=== PATIENT | female | born 1975 | race Two or more races ===

== ENCOUNTER 2018-04-29 10:17 | Emergency (ER) | payer OTHER ==
[~2018-04-29] VITALS: Ht 152.4 cm; Wt 40.8 kg
[2018-04-29] MEDS ORDERED: PYRIDIUM200 MG PO (13:21)
[2018-04-29] MEDS ORDERED: CIPRO500 MG PO (13:21)
== END 2018-04-29 15:44 | disposition home or self-care (01) ==
LOC: ER 10:17
DX: N39.0 Urinary tract infection, site not specified (principal)

== ENCOUNTER 2018-12-31 20:12 | Emergency (ER) | payer OTHER ==
[~2018-12-31] VITALS: Ht 152.4 cm; Wt 40.8 kg
[~2018-12-31 20:12] MED LIST: CIPRO500 MG PO; PYRIDIUM200 MG PO
== END 2018-12-31 22:08 | disposition home or self-care (01) ==
LOC: ER 20:12
DX: N83.292 Other ovarian cyst, left side (principal); N83.291 Other ovarian cyst, right side

== ENCOUNTER 2019-08-03 22:03 | Emergency (ER) | payer OTHER ==
[~2019-08-03] VITALS: Ht 152.4 cm; Wt 42.6 kg
[2019-08-04] MEDS ORDERED: BACTRIM DS TAB1 EACH PO ×2 (03:24→03:27)
[2019-08-04] MEDS ORDERED: PYRIDIUM DS200 MG PO ×2 (03:25→03:27)
== END 2019-08-04 03:35 | disposition home or self-care (01) ==
LOC: ER 22:03
DX: G43.909 Migraine, unspecified, not intractable, without status migrainosus (principal); N39.0 Urinary tract infection, site not specified

== ENCOUNTER 2019-11-08 12:02 | Emergency (ER) | payer OTHER ==
[~2019-11-08] VITALS: Ht 152.4 cm; Wt 40.8 kg
[~2019-11-08 12:02] MED LIST changes: +BACTRIM DS TAB1 EACH PO; +PYRIDIUM DS200 MG PO
[2019-11-08] MEDS ORDERED: PEPCID20 MG PO (14:44)
[2019-11-08] MEDS ORDERED: INTESTINEX680 M1 PO (14:44)
[2019-11-08] MEDS ORDERED: TUSSI PRES-B L480 ML PO (14:44)
[2019-11-08] MEDS ORDERED: ZITHROMAX500 MG PO (14:44)
== END 2019-11-08 14:48 | disposition home or self-care (01) ==
LOC: ER 12:02
DX: B34.9 Viral infection, unspecified (principal)

== ENCOUNTER 2020-05-17 19:47 | Emergency (ER) | payer OTHER ==
[~2020-05-17] VITALS: Ht 152.4 cm; Wt 42.2 kg
[~2020-05-17 19:47] MED LIST changes: +INTESTINEX680 M1 PO; +PEPCID20 MG PO; +TUSSI PRES-B L480 ML PO; +ZITHROMAX500 MG PO
== END 2020-05-17 21:59 | disposition home or self-care (01) ==
LOC: ER 19:47
DX: R30.0 Dysuria (principal); R31.9 Hematuria, unspecified

== ENCOUNTER 2021-03-19 18:00 | Emergency (ER) | payer OTHER ==
[~2021-03-19] VITALS: Ht 152.4 cm; Wt 40.8 kg
[2021-03-19] MEDS ORDERED: SIMVASTATIN5 MG (18:15)
== END 2021-03-20 00:04 | disposition home or self-care (01) ==
LOC: ER 18:00
DX: N20.0 Calculus of kidney (principal); N39.0 Urinary tract infection, site not specified; K59.09 Other constipation; Z11.52 Encounter for screening for COVID-19

== ENCOUNTER 2021-06-29 11:27 | Emergency (ER) | payer OTHER ==
[~2021-06-29] VITALS: Ht 152.4 cm; Wt 47.2 kg
[~2021-06-29 11:27] MED LIST changes: +SIMVASTATIN5 MG
[2021-06-29] MEDS ORDERED: INTESTINEX680 M1 PO (15:33)
[2021-06-29] MEDS ORDERED: CIPRO500 MG PO (15:33)
[2021-06-29] MEDS ORDERED: URETRON D-S TAB1 TAB PO (15:33)
== END 2021-06-29 15:58 | disposition home or self-care (01) ==
LOC: ER 11:27
DX: R30.0 Dysuria (principal); N39.0 Urinary tract infection, site not specified

== ENCOUNTER 2022-03-07 02:31 | Emergency (ER) | payer OTHER ==
[~2022-03-07] VITALS: Ht 152.4 cm; Wt 40.8 kg
[~2022-03-07 02:31] MED LIST changes: +URETRON D-S TAB1 TAB PO
[2022-03-07] MEDS ORDERED: DOLOGESIC 500-1 EACH PO ×3 (05:06→05:07)
[2022-03-07] MEDS ORDERED: ORASEP SPRAY30 ML MM (05:06)
[2022-03-07] MEDS ORDERED: PHENAGIL CH TA1 EACH PO ×3 (05:06→05:07)
[2022-03-07] MEDS ORDERED: ZYNCOF 20-400120 ML PO (05:10)
== END 2022-03-07 05:24 ==
LOC: ER 02:31
DX: U07.1 COVID-19 (principal)

== ENCOUNTER 2022-03-09 23:01 | Emergency (ER) | payer OTHER ==
[~2022-03-09] VITALS: Ht 152.4 cm; Wt 40.8 kg
[~2022-03-09 23:01] MED LIST changes: +DOLOGESIC 500-1 EACH PO; +ORASEP SPRAY30 ML MM; +PHENAGIL CH TA1 EACH PO; +ZYNCOF 20-400120 ML PO
[2022-03-10] MEDS ORDERED: PEPCID AC20 MG PO (02:16)
[2022-03-10] MEDS ORDERED: ZOFRAN8 MG PO (02:16)
== END 2022-03-10 16:36 | disposition home or self-care (01) ==
LOC: ER 23:01
DX: U07.1 COVID-19 (principal); R11.2 Nausea with vomiting, unspecified

== ENCOUNTER 2022-08-20 07:02 | Emergency (ER) | payer OTHER ==
[~2022-08-20] VITALS: Ht 152.4 cm; Wt 41.3 kg
[~2022-08-20 07:02] MED LIST changes: +PEPCID AC20 MG PO; +ZOFRAN8 MG PO
[2022-08-20] MEDS ORDERED: ROSUVASTATIN CA10 MG PO (07:20)
== END 2022-08-20 13:13 | disposition home or self-care (01) ==
LOC: ER 07:02
DX: R10.2 Pelvic and perineal pain (principal)

== ENCOUNTER 2023-04-03 08:38 | Emergency (ER) | payer OTHER ==
[~2023-04-03] VITALS: Ht 152.4 cm; Wt 40.8 kg
[~2023-04-03 08:38] MED LIST changes: +ROSUVASTATIN CA10 MG PO
[2023-04-03] MEDS ORDERED: PEPCID AC20 MG PO (13:54)
[2023-04-03] MEDS ORDERED: ACID REDUCER20 M1 PO (13:54)
== END 2023-04-03 13:59 | disposition home or self-care (01) ==
LOC: ER 08:38
DX: K27.9 Peptic ulcer, site unspecified, unspecified as acute or chronic, without hemorrhage or perforation (principal); R11.0 Nausea; R11.10 Vomiting, unspecified; Z20.822 Contact with and (suspected) exposure to COVID-19; I10 Essential (primary) hypertension; Z88.1 Allergy status to other antibiotic agents

== ENCOUNTER 2023-05-09 13:36 | Emergency (ER) | payer OTHER ==
[~2023-05-09] VITALS: Ht 152.4 cm; Wt 44.5 kg
[~2023-05-09 13:36] MED LIST changes: +ACID REDUCER20 M1 PO
== END 2023-05-09 18:36 | disposition home or self-care (01) ==
LOC: ER 13:36
DX: B34.9 Viral infection, unspecified (principal); K27.9 Peptic ulcer, site unspecified, unspecified as acute or chronic, without hemorrhage or perforation; Z20.822 Contact with and (suspected) exposure to COVID-19

== ENCOUNTER 2024-07-11 15:20 | Emergency (ER) | payer OTHER ==
[~2024-07-11] VITALS: Ht 152.4 cm; Wt 43.5 kg
[~2024-07-11 15:20] MED LIST changes: +CRESTOR20 MG PO; +FAMOTIDINE40 MG PO; +FENOFIBRATE160 MG PO; +LOVAZA1 GM PO
[2024-07-11] MEDS ORDERED: DEXAMETHASONE SODIUM PHOSPHATE 4 MG/ML VIAL IM STA (17:15)
[2024-07-11] MEDS ORDERED: ORPHENADRINE CITRATE 30 MG/ML AMPUL IM STA (17:15)
[2024-07-11] MEDS ORDERED: DEXAMETHASONE SODIUM PHOSPHATE 4 MG/ML VIAL ONE (17:58)
[2024-07-11] MEDS ORDERED: ORPHENADRINE CITRATE 30 MG/ML AMPUL ONE (17:58)
[2024-07-11 18:02] LABS: HEMATOCRIT 37.1 % (36.0-45.00); HEMOGLOBIN 12.5 g/dL (12.0-15.00); MEAN CELL VOLUME 81.7 fL (80.00-100.00); MEAN CORPUSCULAR HEMOGLOBIN 27.6 pg (27.00-32.0); MEAN CORPUSCULAR HGB CONC 33.8 g/dl (32.0-36.0); PLATELET COUNT 230 K/uL (150-450); RED BLOOD COUNT 4.53 M/uL (4.00-6.00); RED CELL DISTRIBUTION WIDTH 13.7 % (11.5-14.5)
[2024-07-11 19:10] LABS: PH,URINE 5.5 (5.0-8.0); URINE APPEARANCE Cloudy; URINE BILIRRUBIN Negative (NEGATIVE); URINE BLOOD Moderate; URINE COLOR Yellow; URINE GLUCOSE Negative (NEGATIVE); URINE KETONE Negative (NEGATIVE); URINE LEUKOCYTE Negative; URINE NITRATE Negative; URINE PROTEIN Negative (NEGATIVE); URINE UROBILINOGEN 0.2 E.U./dl
[2024-07-11 19:14] LABS: URINE BACTERIA 230.4 uL (0.0-1933); URINE EPITHELIAL CELLS 33.8 uL (0.0-38.8); URINE RBC 14.5 uL (0.0-20.8); URINE WBC 2.3 uL (0.0-23.2)
[2024-07-11] MEDS ORDERED: PRILOSEC10 MG PO (20:42)
== END 2024-07-11 21:56 | disposition home or self-care (01) ==
LOC: ER 15:21
DX: R30.0 Dysuria (principal)

== ENCOUNTER 2024-11-24 11:41 | Emergency (ER) | payer OTHER ==
[~2024-11-24] VITALS: Ht 152.4 cm; Wt 42.2 kg
[~2024-11-24 11:41] MED LIST changes: +PRILOSEC10 MG PO
[2024-11-24 12:14] VITALS: BP 100/56; O2SAT 100
[2024-11-24] MEDS ORDERED: FAMOtidine 10 MG/ML (4ML VIAL) IV PUSH STA (13:32)
[2024-11-24] MEDS ORDERED: FAMOTIDINE/PF 20 MG/2 ML VIAL ONE (13:47)
[2024-11-24 14:16] LABS: HEMATOCRIT 41.1 % (36.0-45.00); HEMOGLOBIN 13.3 g/dL (12.0-15.00); MEAN CELL VOLUME 83.7 fL (80.00-100.00); MEAN CORPUSCULAR HGB CONC 32.3 g/dl (32.0-36.0); PLATELET COUNT 194 K/uL (150-450); RED BLOOD COUNT 4.91 M/uL (4.00-6.00); RED CELL DISTRIBUTION WIDTH 14.3 % (11.5-14.5)
[2024-11-24 15:03] LABS: ALBUMIN 3.8 gm/dL (3.4-5.0); BILIRUBIN TOTAL 0.31 mg/dL (0.3-1.2); CALCIUM 9.3 mg/dL (8.5-10.1); CREATININE SERUM 0.99 mg/dL (0.55-1.02); GFR 59.87; GLOBULINA 3.7 G/DL (2.4-3.5); POTASSIUM 4.05 mEq/L (3.5-5.1); TOTAL PROTEIN 7.5 gm/dL (6.4-8.2)
== END 2024-11-24 15:49 | disposition home or self-care (01) ==
LOC: ER 11:43
PROVIDERS: General Practice
DX: K29.70 Gastritis, unspecified, without bleeding (principal)